=== PATIENT | female | born 1985 | race Caucasian/White ===

== ENCOUNTER 2017-09-09 18:27 | Inpatient (IN) | payer OTHER ==
[~2017-09-09] VITALS: Ht 152.4 cm; Wt 70.5 kg
--- NOTE | 2017-09-09 18:36 | HP ---
Date/Time of Note Date/Time of Note DATE: 09/09/17 TIME: 18:35 OB - History Hx of Present Free Text/Dictation 39+ Care: Good Care Ultrasounds: Normal mid trimester US Obstetrical Complications: None Medical Complications: None Past Family/Social History * Past Medical, Surgical, Family and Obstetric Histories reviewed from chart. OB Admission Exam Physical Exam Cervical Dilatation: 4cm Effacement: 75% Station: -1 Membranes: Intact Heart Rate: 140's Accelerations: Accelerations Present Decelerations: No Decelerations Varibility: Moderate Contractions on Admission: 6-10 Minutes Apart OB Assessment/Plan Reason for admission: observation Plan: Expectant Management ELIZABETH MUÑOZ M.D. Sep 09, 2017 18:36
[2017-09-09 18:39] VITALS: BP 124/67; PULSE 87; RESP 16; Ht 152.4 cm; Wt 70.5 kg
[2017-09-09] MEDS ORDERED: HYDROCODONE/APAP (5/325) TAB PO PRN (19:00)
[2017-09-09] MEDS ORDERED: CARBOPROST 250 MCG INJ IM PRN (19:00)
[2017-09-09] MEDS ORDERED: MISOPROSTOL 200 MCG TAB PR PRN (19:00)
[2017-09-09] MEDS ORDERED: OXYTOCIN 30 UNITS/LR 500 ML IV SCH ×3 (19:00→22:30)
[2017-09-09] MEDS ORDERED: OXYTOCIN 30 UNITS/LR 500 ML IV PRN (19:00)
[2017-09-09] MEDS ORDERED: LACTATED RINGER'S 1,000 ML IV PRN (19:00)
[2017-09-09] MEDS ORDERED: AMPICILLIN 2 GM/NS (PMX) 100 ML IV ONE (19:00)
[2017-09-09] MEDS ORDERED: LIDOCAINE 1% (MPF) 30 ML INJ INJ PRN (19:00)
[2017-09-09] MEDS ORDERED: BUTORPHANOL 2 MG INJ IV PRN (19:00)
[2017-09-09] MEDS ORDERED: IBUPROFEN 600 MG TAB PO PRN (19:00)
[2017-09-09] MEDS ORDERED: METHYLERGONOVINE 0.2 MG INJ IM PRN (19:00)
[2017-09-09] MEDS: LACTATED RINGER'S 1,000 ML IV SCH ×2 (19:09→23:47)
--- NOTE | 2017-09-09 21:16 | RADRPT ---
PROCEDURE: OBSTETRICAL ULTRASOUND LIMITED CLINICAL INDICATION: 31 years of age, female. . Labor. No care. TECHNIQUE: Multiple sonographic images of the pelvis were obtained. Transabdominal imaging only w as performed. The images were reviewed on a PACS workstation. Image quality: Satisfactory. COMPARISON: No prior studies are available for comparison. FINDINGS: Marie : Number of fetuses: 1 GENERAL EVALUATION: Cardiac activity: Present. FHR 125 bpm Presentation: Cephalic Placenta: Placenta site: Anterior. No evidence of placental previa. Placental grade 2 . Amniotic fluid: Not evaluated Cervix (transabdominal): Not evaluated DATING: Clinical EGA: 39 weeks 4 days Clinical GRABIEL: September 12, 2017 BIOMETRY: BPD = 9.4 cm , 38 weeks 1 day HC = 33.9 cm , 39 weeks 0 days' AC = 34 point Y cm , 38 weeks 0 days FL = 7.5 cm , 538 weeks 3 days Composite sonographic age: 38 weeks 3 days plus or minus 3-week Estimated due date by ultrasound measurements: September 20, 2017 EFW 3437 grams that is at the 41st percentile for gestational age. LIMITED ANATOMY: stomach is visualized. IMPRESSION: 1. Single living fetus in cephalic presentation. 2. Clinical gestation age of 39 weeks 4 days and clinical GRABIEL September 12, 2017 are concordant with the composite sonographic age within 8 days. 3. Estimated weight is 3437 grams that is at the 41st percentile for gestational age. 4. Anterior grade 2 placenta. RPTAT: HCTS Physician Wyatt Date Time Electronically viewed and signed by Physician Wyatt on 09/09/2017 21:15 CS/
[2017-09-09] MEDS ORDERED: AMPICILLIN 1 GM/NS (PMX) 50 ML IV SCH (23:00)
[2017-09-10] MEDS ORDERED: FENTAnyl 2MCG/ML-ROPIV 0.2% 100 ML ONE (01:00)
[2017-09-10] MEDS ORDERED: MINERAL OIL LIGHT 10 ML VIAL TOP ONE (02:00)
[2017-09-10] MEDS ORDERED: FENTAnyl 2MCG/ML-ROPIV 0.2% 100 ML BAG EPI SCH (02:00)
[2017-09-10] MEDS ORDERED: TRIMETHOBENZAMIDE 100 MG/ML VIAL IM PRN (02:00)
[2017-09-10] MEDS ORDERED: ONDANSETRON 4 MG INJ IV PRN (02:00)
[2017-09-10] MEDS ORDERED: NALOXONE (0.4 MG/ML) INJ IV PRN (02:00)
[2017-09-10] MEDS ORDERED: DIPHENHYDRAMINE 50 MG INJ IV PRN (02:00)
--- NOTE | 2017-09-10 02:25 | LDN ---
Date/Time of Note Date/Time of Note DATE: 09/10/17 TIME: 02:23 Delivery Summary normal vaginal delivery Weeks of Gestation [id number] Placenta Delivered: Spontaneously Meconium: none Episiotomy: No Perineal laceration: 0 Anesthesia type: Epidural Estimated blood loss: 100 Sponge & Needle done & correct: Yes All needle counts correct: Yes Any foreign bodies felt in the: No Problems: Delivery Information Sex Infant Sex: male Apgars 1 Minute: 8 5 Minute: 9 Suctioning Nose & mouth suctioned at gabby: Yes Delee suction performed: No Umbilical Cord Umbilical cord with: 3 Vessels Cord presentations: nuchal cord Nuchal cord present X: 1 Cord Blood was obtained: Yes Mother & Baby Disposition Disposition Mom & Baby to Maternity; Good: Yes Mom transferred to: Other () Baby to NICU: No RANDI GONZALEZ MD Sep 10, 2017 02:25
[2017-09-10] MEDS ORDERED: BENZOCAINE 20% 56 ML SPRAY TOP PRN (04:30)
[2017-09-10] MEDS ORDERED: OXYCODONE/ASPIRIN (4.88/325) TAB PO PRN (04:30)
[2017-09-10] MEDS ORDERED: MISOPROSTOL 200 MCG TAB PR PRN (04:30)
[2017-09-10] MEDS ORDERED: OXYTOCIN 30 UNITS/LR 500 ML IV PRN (04:30)
[2017-09-10] MEDS ORDERED: LANOLIN 7 GM TUBE TOP PRN (04:30)
[2017-09-10] MEDS ORDERED: CARBOPROST 250 MCG INJ IM PRN (04:30)
[2017-09-10] MEDS ORDERED: METHYLERGONOVINE 0.2 MG INJ IM PRN (04:30)
[2017-09-10] MEDS ORDERED: WITCH HAZEL/GLYCERIN PAD PR PRN (04:30)
[2017-09-10] MEDS ORDERED: ZOLPIDEM 5 MG TAB PO PRN (04:30)
[2017-09-10 04:45] VITALS: BP 124/74; PULSE 65; RESP 18
[2017-09-10] MEDS: IBUPROFEN 600 MG TAB PO SCH ×3 (06:00→17:39)
[2017-09-10 07:47] VITALS: BP 115/74; PULSE 77; RESP 18
[2017-09-10] MEDS: OXYCODONE/ASPIRIN (4.88/325) TAB PO PRN ×2 (07:47→17:36)
[2017-09-10] MEDS: SENNA/DOCUSATE NA (8.6MG/50MG) TAB PO SCH ×2 (11:34→21:59)
[2017-09-10 16:02] VITALS: BP 115/59; PULSE 74; RESP 19
[2017-09-10 20:10] VITALS: BP 132/71; PULSE 78; RESP 19
[2017-09-11] MEDS: IBUPROFEN 600 MG TAB PO SCH ×5 (00:02→23:57)
[2017-09-11 04:00] VITALS: BP 111/61; PULSE 66; RESP 18
[2017-09-11 08:15] VITALS: BP 109/61; PULSE 66; RESP 18
[2017-09-11] MEDS: SENNA/DOCUSATE NA (8.6MG/50MG) TAB PO SCH ×2 (09:44→21:55)
--- NOTE | 2017-09-11 11:31 | PN ---
Date/Time of Note Date/Time of Note DATE: 09/11/17 TIME: 11:29 OB Subjective Subjective Subjective September 11, 2017 Post day 1 Patient is doing well, Ambulatory She is afebrile Abdomen is soft , Fundus is firm Moderate amount of lochia Breasts are soft, Nipples are intact No calf tenderness. Perineum is intact. Laboratory Tests Test 09/11/17 07:24 White Blood Count 10.110^3/ul Red Blood Count 3.5510^6/ul Hemoglobin 8.5g/dl Hematocrit 28.3% Mean Corpuscular Volume 79.7fl Mean Corpuscular Hemoglobin 23.9pg Mean Corpuscular Hemoglobin Concent 30.0g/dl Red Cell Distribution Width 15.6% Platelet Count 54894^3/UL Mean Platelet Volume 10.0fl Neutrophils % 63.5% Lymphocytes % 26.2% Monocytes % 7.1% Eosinophils % 1.8% Basophils % 0.3% Nucleated Red Blood Cells % 0.0/100WBC Neutrophils # 6.410^3/ul Lymphocytes # 2.710^3/ul Monocytes # 0.710^3/ul Eosinophils # 0.210^3/ul Basophils # 0.010^3/ul Nucleated Red Blood Cells # 0.010^3/ul Current Medications Medications (Trade) Dose Ordered Sig/Chris Route PRN Reason Start Time Stop Time Status Last Admin Dose Admin Lactated Ringer's 1,000 ml @ 125 mls/hr Q8H IV 09/09/17 18:40 09/10/17 04:22 DC 09/09/17 23:47 Ampicillin 100 ml @ 100 mls/hr ONCE ONCE IV 09/09/17 19:00 09/09/17 20:53 DC Ampicillin (Ampicillin 1 Gm/ NS (Pmx)) 50 ml @ 100 mls/hr Q4H IV 09/09/17 23:00 09/09/17 23:00 DC Butorphanol Tartrate (Stadol) 2 mg Q2H PRN IV PAIN 09/09/17 19:00 09/10/17 04:23 DC Lidocaine 30 ml 30 ml ONCE PRN INJ EPISIOTOMY/TEARING 09/09/17 19:00 09/10/17 04:23 DC Oxytocin/Lactated Ringer's 500 ml @ 125 mls/hr ONCE -MAY REPEAT X1 IV 09/09/17 19:00 09/10/17 04:23 DC Oxytocin/Lactated Ringer's 500 ml @ 125 mls/hr ONCE IV 09/09/17 19:00 09/10/17 04:23 DC 09/10/17 02:41 Ibuprofen (Motrin) 600 mg ONCE PRN PO Mild Pain (Pain Score 1-3) 09/09/17 19:00 09/10/17 04:23 DC Acetaminophen/ Hydrocodone Bitart 2 tab 2 tab ONCE PRN PO Moderate to Severe Pain (4-10) 09/09/17 19:00 09/10/17 04:22 DC Lactated Ringer's 1,000 ml @ 2,000 mls/hr Q30M PRN IV PRE-EPIDURAL BOLUS 09/09/17 19:00 09/10/17 04:23 DC Oxytocin/Lactated Ringer's 500 ml @ 0 mls/hr ONCE PRN IV For Hemorrhage Management 09/09/17 19:00 09/10/17 04:23 DC Methylergonovine Maleate (Methergine) 0.2 mg ONCE PRN IM VAGINAL BLEEDING 09/09/17 19:00 09/10/17 04:23 DC Carboprost Tromethamine (Hemabate) 250 mcg ONCE PRN IM VAGINAL BLEEDING 09/09/17 19:00 09/10/17 04:23 DC Misoprostol 1000 mcg 1,000 mcg ONCE PRN SC VAGINAL BLEEDING 09/09/17 19:00 09/10/17 04:23 DC Oxytocin/Lactated Ringer's 500 ml @ 0 mls/hr Q0M IV 09/09/17 22:30 09/10/17 04:22 DC 09/09/17 22:40 Fentanyl/ Ropivacaine 100 ml @ ud STK-MED ONCE .ROUTE 09/10/17 01:00 09/10/17 01:01 DC Naloxone HCl (Narcan) 0.1 mg Q2M PRN IV FOR RESP RATE 8 OR LESS 09/10/17 02:00 09/10/17 04:23 DC Diphenhydramine HCl (Benadryl) 25 mg Q6H PRN IV ITCHING 09/10/17 02:00 09/10/17 04:22 DC Ondansetron HCl (Zofran Inj) 4 mg Q6H PRN IV NAUSEA AND/OR VOMITING 09/10/17 02:00 09/10/17 04:23 DC Trimethobenzamide HCl (Tigan) 200 mg Q6H PRN IM NAUSEA AND/OR VOMITING 09/10/17 02:00 09/10/17 04:23 DC Fentanyl/ Ropivacaine 100 ml EPIDURAL INFUSION EPI 09/10/17 02:00 09/10/17 04:22 DC Mineral Oil (Muri-Lube) ONCE ONCE TOP 09/10/17 02:00 09/10/17 02:10 DC Ibuprofen (Motrin) 600 mg Q6 PO 09/10/17 06:00 09/11/17 05:18 Oxycodone/Aspirin (Percodan) 1 tab Q3H PRN PO PAIN LEVEL 1-5 09/10/17 04:30 Oxycodone/Aspirin (Percodan) 2 tab Q3H PRN PO PAIN LEVEL 6-10 09/10/17 04:30 09/10/17 17:36 Zolpidem Tartrate (Ambien) 5 mg QHS PRN PO INSOMNIA 09/10/17 04:30 Senna/Docusate Sodium (Senokot-S) 1 tab BID PO 09/10/17 09:00 09/11/17 09:44 Witch Carolin/ Glycerin (Tucks Pads) 1 pad BEDSIDE MEDICATION PRN SC HEMORRHOID/EPISIOTMY PAIN 09/10/17 04:30 09/10/17 04:48 Benzocaine (Dermoplast [place]) 1 spray BEDSIDE MEDICATION PRN TOP HEMORRHOID/EPISIOTMY PAIN 09/10/17 04:30 09/10/17 04:48 Lanolin (Jop-R-Plzpvk) 1 applic BEDSIDE MEDICATION PRN TOP BEDSIDE FOR ALIYA TO NIPPLES 09/10/17 04:30 09/11/17 09:44 Diphtheria/ Tetanus/Acell Pertussis 0.5 ml 0.5 ml ONCE ONCE IM* 09/12/17 09:00 09/12/17 09:01 Oxytocin/Lactated Ringer's 500 ml @ 0 mls/hr ONCE PRN IV For Hemorrhage Management 09/10/17 04:30 Methylergonovine Maleate (Methergine) 0.2 mg ONCE PRN IM VAGINAL BLEEDING 09/10/17 04:30 Carboprost Tromethamine (Hemabate) 250 mcg ONCE PRN IM VAGINAL BLEEDING 09/10/17 04:30 Misoprostol (Cytotec) 1,000 mcg ONCE PRN SC VAGINAL BLEEDING 09/10/17 04:30 Breast feeding the new born. SOPHIA GAUTAM MD Sep 11, 2017 11:31
--- NOTE | 2017-09-11 11:31 | PN ---
Date/Time of Note Date/Time of Note DATE: 09/11/17 TIME: 11:29 OB Subjective Subjective Subjective September 11, 2017 Post day 1 Patient is doing well, Ambulatory She is afebrile Abdomen is soft , Fundus is firm Moderate amount of lochia Breasts are soft, Nipples are intact No calf tenderness. Perineum is intact. Laboratory Tests Test 09/11/17 07:24 White Blood Count 10.110^3/ul Red Blood Count 3.5510^6/ul Hemoglobin 8.5g/dl Hematocrit 28.3% Mean Corpuscular Volume 79.7fl Mean Corpuscular Hemoglobin 23.9pg Mean Corpuscular Hemoglobin Concent 30.0g/dl Red Cell Distribution Width 15.6% Platelet Count 78387^3/UL Mean Platelet Volume 10.0fl Neutrophils % 63.5% Lymphocytes % 26.2% Monocytes % 7.1% Eosinophils % 1.8% Basophils % 0.3% Nucleated Red Blood Cells % 0.0/100WBC Neutrophils # 6.410^3/ul Lymphocytes # 2.710^3/ul Monocytes # 0.710^3/ul Eosinophils # 0.210^3/ul Basophils # 0.010^3/ul Nucleated Red Blood Cells # 0.010^3/ul Current Medications Medications (Trade) Dose Ordered Sig/Chris Route PRN Reason Start Time Stop Time Status Last Admin Dose Admin Lactated Ringer's 1,000 ml @ 125 mls/hr Q8H IV 09/09/17 18:40 09/10/17 04:22 DC 09/09/17 23:47 Ampicillin 100 ml @ 100 mls/hr ONCE ONCE IV 09/09/17 19:00 09/09/17 20:53 DC Ampicillin (Ampicillin 1 Gm/ NS (Pmx)) 50 ml @ 100 mls/hr Q4H IV 09/09/17 23:00 09/09/17 23:00 DC Butorphanol Tartrate (Stadol) 2 mg Q2H PRN IV PAIN 09/09/17 19:00 09/10/17 04:23 DC Lidocaine 30 ml 30 ml ONCE PRN INJ EPISIOTOMY/TEARING 09/09/17 19:00 09/10/17 04:23 DC Oxytocin/Lactated Ringer's 500 ml @ 125 mls/hr ONCE -MAY REPEAT X1 IV 09/09/17 19:00 09/10/17 04:23 DC Oxytocin/Lactated Ringer's 500 ml @ 125 mls/hr ONCE IV 09/09/17 19:00 09/10/17 04:23 DC 09/10/17 02:41 Ibuprofen (Motrin) 600 mg ONCE PRN PO Mild Pain (Pain Score 1-3) 09/09/17 19:00 09/10/17 04:23 DC Acetaminophen/ Hydrocodone Bitart 2 tab 2 tab ONCE PRN PO Moderate to Severe Pain (4-10) 09/09/17 19:00 09/10/17 04:22 DC Lactated Ringer's 1,000 ml @ 2,000 mls/hr Q30M PRN IV PRE-EPIDURAL BOLUS 09/09/17 19:00 09/10/17 04:23 DC Oxytocin/Lactated Ringer's 500 ml @ 0 mls/hr ONCE PRN IV For Hemorrhage Management 09/09/17 19:00 09/10/17 04:23 DC Methylergonovine Maleate (Methergine) 0.2 mg ONCE PRN IM VAGINAL BLEEDING 09/09/17 19:00 09/10/17 04:23 DC Carboprost Tromethamine (Hemabate) 250 mcg ONCE PRN IM VAGINAL BLEEDING 09/09/17 19:00 09/10/17 04:23 DC Misoprostol 1000 mcg 1,000 mcg ONCE PRN NE VAGINAL BLEEDING 09/09/17 19:00 09/10/17 04:23 DC Oxytocin/Lactated Ringer's 500 ml @ 0 mls/hr Q0M IV 09/09/17 22:30 09/10/17 04:22 DC 09/09/17 22:40 Fentanyl/ Ropivacaine 100 ml @ ud STK-MED ONCE .ROUTE 09/10/17 01:00 09/10/17 01:01 DC Naloxone HCl (Narcan) 0.1 mg Q2M PRN IV FOR RESP RATE 8 OR LESS 09/10/17 02:00 09/10/17 04:23 DC Diphenhydramine HCl (Benadryl) 25 mg Q6H PRN IV ITCHING 09/10/17 02:00 09/10/17 04:22 DC Ondansetron HCl (Zofran Inj) 4 mg Q6H PRN IV NAUSEA AND/OR VOMITING 09/10/17 02:00 09/10/17 04:23 DC Trimethobenzamide HCl (Tigan) 200 mg Q6H PRN IM NAUSEA AND/OR VOMITING 09/10/17 02:00 09/10/17 04:23 DC Fentanyl/ Ropivacaine 100 ml EPIDURAL INFUSION EPI 09/10/17 02:00 09/10/17 04:22 DC Mineral Oil (Muri-Lube) ONCE ONCE TOP 09/10/17 02:00 09/10/17 02:10 DC Ibuprofen (Motrin) 600 mg Q6 PO 09/10/17 06:00 09/11/17 05:18 Oxycodone/Aspirin (Percodan) 1 tab Q3H PRN PO PAIN LEVEL 1-5 09/10/17 04:30 Oxycodone/Aspirin (Percodan) 2 tab Q3H PRN PO PAIN LEVEL 6-10 09/10/17 04:30 09/10/17 17:36 Zolpidem Tartrate (Ambien) 5 mg QHS PRN PO INSOMNIA 09/10/17 04:30 Senna/Docusate Sodium (Senokot-S) 1 tab BID PO 09/10/17 09:00 09/11/17 09:44 Witch Carolin/ Glycerin (Tucks Pads) 1 pad BEDSIDE MEDICATION PRN NE HEMORRHOID/EPISIOTMY PAIN 09/10/17 04:30 09/10/17 04:48 Benzocaine (Dermoplast [place]) 1 spray BEDSIDE MEDICATION PRN TOP HEMORRHOID/EPISIOTMY PAIN 09/10/17 04:30 09/10/17 04:48 Lanolin (Uct-U-Cowptj) 1 applic BEDSIDE MEDICATION PRN TOP BEDSIDE FOR ALIYA TO NIPPLES 09/10/17 04:30 09/11/17 09:44 Diphtheria/ Tetanus/Acell Pertussis 0.5 ml 0.5 ml ONCE ONCE IM* 09/12/17 09:00 09/12/17 09:01 Oxytocin/Lactated Ringer's 500 ml @ 0 mls/hr ONCE PRN IV For Hemorrhage Management 09/10/17 04:30 Methylergonovine Maleate (Methergine) 0.2 mg ONCE PRN IM VAGINAL BLEEDING 09/10/17 04:30 Carboprost Tromethamine (Hemabate) 250 mcg ONCE PRN IM VAGINAL BLEEDING 09/10/17 04:30 Misoprostol (Cytotec) 1,000 mcg ONCE PRN NE VAGINAL BLEEDING 09/10/17 04:30 Breast feeding the new born. SOPHIA GAUTAM MD Sep 11, 2017 11:31
--- NOTE | 2017-09-11 11:31 | PN ---
Date/Time of Note Date/Time of Note DATE: 09/11/17 TIME: 11:29 OB Subjective Subjective Subjective September 11, 2017 Post day 1 Patient is doing well, Ambulatory She is afebrile Abdomen is soft , Fundus is firm Moderate amount of lochia Breasts are soft, Nipples are intact No calf tenderness. Perineum is intact. Laboratory Tests Test 09/11/17 07:24 White Blood Count 10.110^3/ul Red Blood Count 3.5510^6/ul Hemoglobin 8.5g/dl Hematocrit 28.3% Mean Corpuscular Volume 79.7fl Mean Corpuscular Hemoglobin 23.9pg Mean Corpuscular Hemoglobin Concent 30.0g/dl Red Cell Distribution Width 15.6% Platelet Count 88445^3/UL Mean Platelet Volume 10.0fl Neutrophils % 63.5% Lymphocytes % 26.2% Monocytes % 7.1% Eosinophils % 1.8% Basophils % 0.3% Nucleated Red Blood Cells % 0.0/100WBC Neutrophils # 6.410^3/ul Lymphocytes # 2.710^3/ul Monocytes # 0.710^3/ul Eosinophils # 0.210^3/ul Basophils # 0.010^3/ul Nucleated Red Blood Cells # 0.010^3/ul Current Medications Medications (Trade) Dose Ordered Sig/Chris Route PRN Reason Start Time Stop Time Status Last Admin Dose Admin Lactated Ringer's 1,000 ml @ 125 mls/hr Q8H IV 09/09/17 18:40 09/10/17 04:22 DC 09/09/17 23:47 Ampicillin 100 ml @ 100 mls/hr ONCE ONCE IV 09/09/17 19:00 09/09/17 20:53 DC Ampicillin (Ampicillin 1 Gm/ NS (Pmx)) 50 ml @ 100 mls/hr Q4H IV 09/09/17 23:00 09/09/17 23:00 DC Butorphanol Tartrate (Stadol) 2 mg Q2H PRN IV PAIN 09/09/17 19:00 09/10/17 04:23 DC Lidocaine 30 ml 30 ml ONCE PRN INJ EPISIOTOMY/TEARING 09/09/17 19:00 09/10/17 04:23 DC Oxytocin/Lactated Ringer's 500 ml @ 125 mls/hr ONCE -MAY REPEAT X1 IV 09/09/17 19:00 09/10/17 04:23 DC Oxytocin/Lactated Ringer's 500 ml @ 125 mls/hr ONCE IV 09/09/17 19:00 09/10/17 04:23 DC 09/10/17 02:41 Ibuprofen (Motrin) 600 mg ONCE PRN PO Mild Pain (Pain Score 1-3) 09/09/17 19:00 09/10/17 04:23 DC Acetaminophen/ Hydrocodone Bitart 2 tab 2 tab ONCE PRN PO Moderate to Severe Pain (4-10) 09/09/17 19:00 09/10/17 04:22 DC Lactated Ringer's 1,000 ml @ 2,000 mls/hr Q30M PRN IV PRE-EPIDURAL BOLUS 09/09/17 19:00 09/10/17 04:23 DC Oxytocin/Lactated Ringer's 500 ml @ 0 mls/hr ONCE PRN IV For Hemorrhage Management 09/09/17 19:00 09/10/17 04:23 DC Methylergonovine Maleate (Methergine) 0.2 mg ONCE PRN IM VAGINAL BLEEDING 09/09/17 19:00 09/10/17 04:23 DC Carboprost Tromethamine (Hemabate) 250 mcg ONCE PRN IM VAGINAL BLEEDING 09/09/17 19:00 09/10/17 04:23 DC Misoprostol 1000 mcg 1,000 mcg ONCE PRN NC VAGINAL BLEEDING 09/09/17 19:00 09/10/17 04:23 DC Oxytocin/Lactated Ringer's 500 ml @ 0 mls/hr Q0M IV 09/09/17 22:30 09/10/17 04:22 DC 09/09/17 22:40 Fentanyl/ Ropivacaine 100 ml @ ud STK-MED ONCE .ROUTE 09/10/17 01:00 09/10/17 01:01 DC Naloxone HCl (Narcan) 0.1 mg Q2M PRN IV FOR RESP RATE 8 OR LESS 09/10/17 02:00 09/10/17 04:23 DC Diphenhydramine HCl (Benadryl) 25 mg Q6H PRN IV ITCHING 09/10/17 02:00 09/10/17 04:22 DC Ondansetron HCl (Zofran Inj) 4 mg Q6H PRN IV NAUSEA AND/OR VOMITING 09/10/17 02:00 09/10/17 04:23 DC Trimethobenzamide HCl (Tigan) 200 mg Q6H PRN IM NAUSEA AND/OR VOMITING 09/10/17 02:00 09/10/17 04:23 DC Fentanyl/ Ropivacaine 100 ml EPIDURAL INFUSION EPI 09/10/17 02:00 09/10/17 04:22 DC Mineral Oil (Muri-Lube) ONCE ONCE TOP 09/10/17 02:00 09/10/17 02:10 DC Ibuprofen (Motrin) 600 mg Q6 PO 09/10/17 06:00 09/11/17 05:18 Oxycodone/Aspirin (Percodan) 1 tab Q3H PRN PO PAIN LEVEL 1-5 09/10/17 04:30 Oxycodone/Aspirin (Percodan) 2 tab Q3H PRN PO PAIN LEVEL 6-10 09/10/17 04:30 09/10/17 17:36 Zolpidem Tartrate (Ambien) 5 mg QHS PRN PO INSOMNIA 09/10/17 04:30 Senna/Docusate Sodium (Senokot-S) 1 tab BID PO 09/10/17 09:00 09/11/17 09:44 Witch Carolin/ Glycerin (Tucks Pads) 1 pad BEDSIDE MEDICATION PRN [place] HEMORRHOID/EPISIOTMY PAIN 09/10/17 04:30 09/10/17 04:48 Benzocaine (Dermoplast [place]) 1 spray BEDSIDE MEDICATION PRN TOP HEMORRHOID/EPISIOTMY PAIN 09/10/17 04:30 09/10/17 04:48 Lanolin (Lqg-[id number]-Rcgseo) 1 applic BEDSIDE MEDICATION PRN TOP BEDSIDE FOR ALIYA TO NIPPLES 09/10/17 04:30 09/11/17 09:44 Diphtheria/ Tetanus/Acell Pertussis 0.5 ml 0.5 ml ONCE ONCE IM* 09/12/17 09:00 09/12/17 09:01 Oxytocin/Lactated Ringer's 500 ml @ 0 mls/hr ONCE PRN IV For Hemorrhage Management 09/10/17 04:30 Methylergonovine Maleate (Methergine) 0.2 mg ONCE PRN IM VAGINAL BLEEDING 09/10/17 04:30 Carboprost Tromethamine (Hemabate) 250 mcg ONCE PRN IM VAGINAL BLEEDING 09/10/17 04:30 Misoprostol (Cytotec) 1,000 mcg ONCE PRN NC VAGINAL BLEEDING 09/10/17 04:30 Breast feeding the new born. SOPHIA GAUTAM MD Sep 11, 2017 11:31
[2017-09-11 15:59] VITALS: BP 123/76; PULSE 79; RESP 17
[2017-09-11 20:00] VITALS: BP 131/69; PULSE 71; RESP 18
[2017-09-12 04:00] VITALS: BP 114/71; PULSE 73; RESP 19
[2017-09-12] MEDS: IBUPROFEN 600 MG TAB PO SCH ×2 (05:34→12:01)
[2017-09-12 08:35] VITALS: BP 125/80; PULSE 73; RESP 16
[2017-09-12] MEDS ORDERED: DIPHTH/TET/ACEL PERTUSS (ADULT) 0.5 ML VIAL IM* ONE (09:00)
[2017-09-12] MEDS: SENNA/DOCUSATE NA (8.6MG/50MG) TAB PO SCH (10:12)
--- NOTE | 2017-09-12 11:30 | QN ---
Documentation Comment PPD#2 is stable afebrile tolerates diet ambulates No VB +BM ,voids, VS stable Gen NAD Abd soft NT ND Genitalia No blood at perinium --->discharge plan ELIZABETH MUÑOZ M.D. Sep 12, 2017 11:30
--- NOTE | 2017-09-12 11:31 | DS ---
Date/Time of Note Date/Time of Note DATE: 09/12/17 TIME: 11:30 Discharge Summary Admission/Discharge Info Admit Date/Time Sep 09, 2017 at 18:35 Discharge Date/Time 09/12/17 Discharge Diagnosis Patient Condition: Good Procedures vaginal delivery Hospital Course uneventful Primary Care Provider Not On Staff Doctor ELIZABETH MUÑOZ M.D. Sep 12, 2017 11:31
== END 2017-09-12 16:01 | disposition home or self-care (01) | DRG 775 ==
LOC: OBT 18:27 → L-D 18:28 → OBT 18:35 → L-D 18:35 → PP1 09-10 04:34
PROVIDERS: ADMIT Obstetrics & Gynecology; ATTEND Obstetrics & Gynecology
PROC: 10E0XZZ Delivery of Products of Conception, External Approach (ICD-10-PCS; principal; 2017-09-10)
PROC: 3E0P3VZ Introduction of Hormone into Female Reproductive, Percutaneous Approach (ICD-10-PCS; 2017-09-10)
DX: O69.81X0 Labor and delivery complicated by cord around neck, without compression, not applicable or unspecified (principal); Z37.0 Single live birth; Z3A.39 39 weeks gestation of pregnancy
CPT/HCPCS: 62319; 76815; 80307; 84112; 85025; 85610; 85730; 86592; 86703; 86762; 86900; 86901; 87340; 90715; G0463; J2590; J3010; J7120